=== PATIENT | male | born 1960 | race Caucasian/White ===

== ENCOUNTER 2023-08-06 03:43 | Emergency (ER) | payer OTHER, SELFPAY ==
[2023-08-06 03:44] VITALS: BMI 23.9
[2023-08-06 03:47] VITALS: BP 172/108
[2023-08-06 04:00] VITALS: BP 152/100
[2023-08-06 04:06] LABS: % Basophils 0.8 % (0-2); % Eosinophils 1.8 % (0-6); % Immature Granulocytes 0.2 % (0-0.5); % Lymphocytes 45.3 % (20.5-51.1); % Monocytes 7.7 % (1.7-9.3); % Neutrophils 44.2 % (42.2-75.2); Absolute Basophils 0.1 10^3/uL (0-0.2); Absolute Eosinophils 0.2 10^3/uL (0-0.7); Absolute Lymphocytes 4.5 10^3/uL (1.2-3.4); Absolute Monocytes 0.8 10^3/uL (0.1-0.6); Absolute Neutrophils 4.4 10^3/uL (1.4-6.5); Hematocrit 42.4 % (39.0-52.0); Mean Corp Hgb Conc. 35.4 g/dL (33.0-37.0); Mean Corpuscular Hgb 31.6 pg (27.0-31.0); Mean Corpuscular Volume 89.3 fL (80.0-94.0); Mean Platelet Volume 9.1 fL (7.4-10.4); Nucleated Red Blood Cells % 0 % (-); Platelet Count 230 10^3/uL (130-400); Red Blood Cell Count 4.75 10^6/uL (4.70-6.10); White Blood Cell Count 9.9 10^3/uL (4.8-10.8)
--- NOTE | 2023-08-06 04:07 | ED.GENMED ---
History of Present Illness
<MICHELLE Pena - Last Filed: 08/12/23 03:39>
General
Chief Complaint: Heart Rate Problem
Source: patient and family
Time Seen by Provider: 08/06/23 03:56
Travel History
Have you had any contact with someone who has COVID-19?: No
Do you have any symptoms of coronavirus? Fever > 100 degrees, chills, cough, shortness of breath, sore throat, loss of taste or smell, muscle aches, or headache?: No
History of Present Illness
History of Present Illness:
Pt is a pleasant 63 year old male presenting for an exacerbation of atrial fibrillation. Pt reports he woke up this morning in a cold sweat and his heart rate was around 120. Pt reports taking a 325 mg aspirin tablet at 3:10 am as he is not on blood
thinners. He reports palpitations, mild headache, and dizziness. He denies chest pain, SOB, nausea, vomiting, vision changes. He denies any falls. He reports he has been having repeated episodes of afib since July 04. This is his 6th episode
since July 04. He notes that on July 29 his heart rate fell below 30 during an episode. He notes he is not a candidate for beta blockers as he has a low resting heart rate around 45. He has a past history of successful cardioversion in 2020.
Pt is followed by Dr. Hairston and has an appointment scheduled for September 05 but his office advised him to go to the ER if he had another episode prior to his visit. Pt is active, stating he cycles or runs every other day. Pt denies tobacco use and
reports occasional alcohol consumption.
Past History
<MICHELLE Pena - Last Filed: 08/12/23 03:39>
Past History
ED Past Medical History: Arrthythmia and Hypothyroidism
ED Past Surgical History: None
Social History
Tobacco: Non-smoker
Alcohol: Occasional
Drug: None
Personal:
Living: with family
Employment: Employed
Family History
Family History: Other
Review of Systems
<MIHCELLE Pena - Last Filed: 08/12/23 03:39>
Review of Systems
All Other Systems: Not applicable
Constitutional: Reports no symptoms
EENT: Reports no symptoms
Respiratory: Reports no symptoms
Cardiac: Reports palpitations
ABD/GI: Reports no symptoms
: Reports no symptoms
Musculoskeletal: Reports no symptoms
Skin: Reports no symptoms
Neurological: Reports headache
Endocrine: Reports no symptoms
Hematologic/Lymphatic: Reports no symptoms
Psychiatric: Reports no symptoms
Phy Exam
<MICHELLE Pena - Last Filed: 08/12/23 03:39>
General Physical Exam
General Presentation: well appearing
General age: appears stated age
General Skin: warm and dry
General Habitus: normal
General Mental: alert
General Hydration: appears well hydrated
ENT Exam
ENT Exam: EOMI
Eye Exam
Eye Exam: PERRL, EOMI and conjunctiva normal
Cardiovascular Exam
Cardiovascular Exam: no edema and irregularly irregular
Pulmonary Exam
Pulmonary Exam: lungs clear
Mental
Mental Status: oriented to person, oriented to place and oriented to time
Musculoskeletal Exam
Musculoskeletal Exam: no edema
Skin Exam
Skin Exam: normal color and warm/dry
Psychiatric Exam
Psychiatric Exam: normal mood/affect
Course
<MICHELLE Pena - Last Filed: 08/12/23 03:39>
Orders/Labs/Results
Orders:
Orders
08/06/23 03:47
Electrocardiogram (*1) Urgent
Reason for Study: Chest Pain
Cardiac Monitoring- Treatment ONCE
EKG- Treatment ONCE
IV Insert/Care/Rem.- Treatment PRN
O2 Therapy [RESP] Urgent
Titrate/Wean O2 to maintain O2 sat greater than (%): 90
Special Instructions: Maintain sats >/=90%
Pulse Ox/spot Check [RESP] Urgent
Quantity: 1
Special Instructions: ON ROOM AIR
08/06/23 03:57
Complete Blood Count/With Diff Urgent
Comprehensive Metabolic Panel Urgent
Troponin I Urgent
08/06/23 06:11
Rivaroxaban [Xarelto] 20 mg PO NOW STA
Abnormal Lab Results
08/06/23
03:57
MCH 31.6 H pg
(27.0-31.0)
Absolute Lymphs (auto) 4.5 H 10^3/uL
(1.2-3.4)
Absolute Monos (auto) 0.8 H 10^3/uL
(0.1-0.6)
Glucose 104 H mg/dl
(70-99)
08/06/23 03:57
08/06/23 03:57
Vital Signs
Initial and Last Documented VS:
Initial Vital Signs
Temp Pulse Resp BP Pulse Ox
97.9 F 107 19 172/108 99
08/06/23 03:47 08/06/23 03:47 08/06/23 03:47 08/06/23 03:47 08/06/23 03:47
Last Documented Vital Signs
Temp Pulse Resp BP Pulse Ox
97.9 F 69 16 121/81 97
08/06/23 03:47 08/06/23 06:15 08/06/23 05:30 08/06/23 06:00 08/06/23 06:15
<Cameron Adams, - Last Filed: 08/06/23 06:11>
Orders/Labs/Results
Orders:
Orders
08/06/23 03:47
Electrocardiogram (*1) Urgent
Reason for Study: Chest Pain
Cardiac Monitoring- Treatment ONCE
EKG- Treatment ONCE
IV Insert/Care/Rem.- Treatment PRN
O2 Therapy [RESP] Urgent
Titrate/Wean O2 to maintain O2 sat greater than (%): 90
Special Instructions: Maintain sats >/=90%
Pulse Ox/spot Check [RESP] Urgent
Quantity: 1
Special Instructions: ON ROOM AIR
08/06/23 03:57
Complete Blood Count/With Diff Urgent
Comprehensive Metabolic Panel Urgent
Troponin I Urgent
08/06/23 06:11
Rivaroxaban [Xarelto] 20 mg PO NOW STA
Abnormal Lab Results
08/06/23
03:57
MCH 31.6 H pg
(27.0-31.0)
Absolute Lymphs (auto) 4.5 H 10^3/uL
(1.2-3.4)
Absolute Monos (auto) 0.8 H 10^3/uL
(0.1-0.6)
Glucose 104 H mg/dl
(70-99)
08/06/23 03:57
08/06/23 03:57
Vital Signs
Initial and Last Documented VS:
Initial Vital Signs
Temp Pulse Resp BP Pulse Ox
97.9 F 107 19 172/108 99
08/06/23 03:47 08/06/23 03:47 08/06/23 03:47 08/06/23 03:47 08/06/23 03:47
Last Documented Vital Signs
Temp Pulse Resp BP Pulse Ox
97.9 F 69 16 121/81 97
08/06/23 03:47 08/06/23 06:15 08/06/23 05:30 08/06/23 06:00 08/06/23 06:15
Bentleylt;MICHELLE Pena - Last Filed: 08/12/23 03:39>
MDM/Problems Addressed
Differential Diagnosis Includes:
Atrial fibrillation, PVCs
MDM/Problems Addressed:
Rapid heart rate
Chronic conditions affecting care: Arrhythmia
Acute Exacerbation and/or Progression of Chronic Illness: Arrhythmia
<MICHELLE Pena - Last Filed: 08/12/23 03:39>
*Critical Care Note
Total Time (30-74mins, 75-104mins- exclusive of procedures): Not Applicable
<Cameron Adams DO - Last Filed: 08/06/23 06:11>
Update Note
Update Note:
Spoke with Dr. Fuchs, manager of environmental services. At this point he recommends Xarelto and follow-up in the office. Discussed this plan with patient who is in agreement.
ED Attending Note
<MICHELLE Pena - Last Filed: 08/12/23 03:39>
-
Portions of this chart may have been created with voice recognition software.� Occasional wrong word or��sound alike� substitutions may have occurred due to the inherent limitations of voice recognition software.
<Cameron Adams DO - Last Filed: 08/06/23 06:11>
ED Attending Note
Patient seen and examined by attending physician: Yes
I performed the substantive portion of visit, reviewed & personally made and approve the management plan that is documented in note by myself or DINESH.: Yes
Discharge Plan
Departure
Patient Disposition: Home (Routine Discharge)
Date of Disposition: 08/06/23
Time of Disposition: 06:10
Patient with high blood pressure during this ER visit?: Yes
Condition: Good
Discharge Problem:
Atrial fibrillation
Instructions: Atrial Fibrillation (DC), Palpitations (DC), BLOOD PRESSURE
Prescriptions:
New
Xarelto 20 mg tablet
20 mg PO QPM Qty: 15 0RF
No Action
levothyroxine 75 MCG tablet
75 mcg PO DAILY
cholecalciferol (vitamin D3) 1,000 UNITS tablet
1,000 units PO DAILY
Referrals:
Milla Javed DO [Family Provider] -
Francisco Hairston MD [Active] - Next open appointment
Activity Restrictions/Additional Instructions:
It was a pleasure meeting you and taking part in your care. We hope for your continued healing and wellness.
Please read discharge instructions in their entirety. However, they are for general education and may not describe your exact diagnosis at discharge. Information on your ER visit and medical conditions were discussed with you along with appropriate
follow up information...
If indicated, please take your medications as instructed and indicated on discharge paperwork.
Please schedule a follow up appointment as directed. Call to schedule an appointment
Please return to the emergency department with ANY change in, persisting, or worsening of symptoms. If any of your symptoms do not improve, or persist, or become more severe within 6-12 hours, please return to the emergency department for further
care.
Please return to the emergency department if you develop a headache, neck pain/stiffness, fever greater than 100.4F, chest pain, shortness of breath, persistent nausea, vomiting, slurred speech, difficulty walking, numbness/tingling, weakness, signs
of infection or any other symptoms that are worrisome to you.
If you have any questions or concerns please do not hesitate to call the Hospital at or E-mail me directly at [email or web address]
Interventions
Interventions:
*Risk Screen - Suicide Last Done: 08/06/23 03:47
*General Assessment Last Done: 08/06/23 03:47
*Neglect/Abuse Screening Last Done: 08/06/23 03:47
*ED COVID-19 Vaccine History Last Done: 08/06/23 03:47
*Nursing Disposition Last Done: 08/06/23 06:33
ED- Cardiac Assessment Last Done: 08/06/23 04:01
ED- Pulmonary Assessment Last Done: 08/06/23 04:01
Discharge Date and Time
Discharge Date/Time: 08/06/23 06:34
[2023-08-06 04:23] LABS: ALT (SGPT) 29 U/L (0-50); AST (SGOT) 35 U/L (17-59); Albumin 4.8 g/dl (3.5-5.0); Alkaline Phosphatase 38 U/L (38-126); Blood Urea Nitrogen 18 mg/dl (9-20); Calcium 9.5 mg/dl (8.4-10.2); Carbon Dioxide 28 mmol/L (22-30); Chloride 100 mmol/L (98-107); Estimated Creatinine Clearance 88 ml/min; Glucose 104 mg/dl (70-99); Potassium 3.8 mmol/L (3.5-5.1); Sodium 139 mmol/L (135-145); Total Bilirubin 1.2 mg/dl (0.2-1.3); Total Protein 7.5 g/dl (6.3-8.2); eGFR > 60.00
[2023-08-06 04:30] LABS: Troponin I < 0.012 ng/ml
[2023-08-06 05:00] VITALS: BP 134/97
[2023-08-06 06:00] VITALS: BP 121/81
[2023-08-06] MEDS: XARELTO 20 MG PO (06:29)
== END 2023-08-06 06:34 | disposition home or self-care (01) ==
LOC: EMR 03:43
PROVIDERS: EMERGENCY PHYSICIAN Student in an Organized Health Care Education/Training Program; FAMILY PHYSICIAN Internal Medicine
DX: I48.91 Unspecified atrial fibrillation (principal); R03.0 Elevated blood-pressure reading, without diagnosis of hypertension
CPT/HCPCS: 99284; 80053; 84484; 85025; 93005

== ENCOUNTER → 2023-11-10 06:34 | Day surgery (SDC) | payer OTHER, SELFPAY | LOC: GI 06:34 | PROVIDERS: ATTENDING PHYSICIAN Internal Medicine | DX: K22.89 Other specified disease of esophagus (principal); K44.9 Diaphragmatic hernia without obstruction or gangrene; K31.7 Polyp of stomach and duodenum; K31.89 Other diseases of stomach and duodenum; R68.81 Early satiety; R14.2 Eructation; Z79.01 Long term (current) use of anticoagulants; K29.70 Gastritis, unspecified, without bleeding | CPT/HCPCS: 43239; 88305; 88342 ==

== ENCOUNTER → 2023-12-16 06:27 | Day surgery (SDC) | payer OTHER, SELFPAY | LOC: GI 06:27 | PROVIDERS: ATTENDING PHYSICIAN Internal Medicine | DX: K92.1 Melena (principal); K64.8 Other hemorrhoids; D12.0 Benign neoplasm of cecum; K22.89 Other specified disease of esophagus; K44.9 Diaphragmatic hernia without obstruction or gangrene | CPT/HCPCS: 45385; 45380; 43235; 88305 ==

== ENCOUNTER → 2024-02-01 08:12 | Day surgery (SDC) | payer OTHER, SELFPAY ==
[2024-01-25 13:03] VITALS: BMI 23.0
[2024-01-25 13:14] LABS: % Basophils 1.2 % (0-2); % Eosinophils 1.8 % (0-6); % Immature Granulocytes 0.1 % (0-0.5); % Lymphocytes 45.5 % (20.5-51.1); % Monocytes 6.8 % (1.7-9.3); % Neutrophils 44.6 % (42.2-75.2); Absolute Basophils 0.1 10^3/uL (0-0.2); Absolute Eosinophils 0.2 10^3/uL (0-0.7); Absolute Monocytes 0.6 10^3/uL (0.1-0.6); Absolute Neutrophils 3.9 10^3/uL (1.4-6.5); Hematocrit 39.4 % (39.0-52.0); Hemoglobin 13.8 g/dL (13.0-18.0); Mean Corpuscular Volume 88.5 fL (80.0-94.0); Mean Platelet Volume 9.4 fL (7.4-10.4); Nucleated Red Blood Cells % 0 % (-); Platelet Count 249 10^3/uL (130-400); Red Blood Cell Count 4.45 10^6/uL (4.70-6.10); Red Cell Dist. Width 12.1 % (11.5-14.5); White Blood Cell Count 8.7 10^3/uL (4.8-10.8)
[2024-01-25 13:17] LABS: INR 1.26; PT 15.8 Sec (11.4-14.6)
[2024-01-25 13:24] LABS: ALT (SGPT) 41 U/L (0-50); AST (SGOT) 31 U/L (17-59); Albumin 4.8 g/dl (3.5-5.0); Alkaline Phosphatase 41 U/L (38-126); Blood Urea Nitrogen 17 mg/dl (9-20); Calcium 9.9 mg/dl (8.4-10.2); Carbon Dioxide 30 mmol/L (22-30); Chloride 101 mmol/L (98-107); Estimated Creatinine Clearance 79 ml/min; Glucose 97 mg/dl (70-99); Magnesium 2.1 mg/dl (1.6-2.3); Potassium 4.6 mmol/L (3.5-5.1); Sodium 140 mmol/L (135-145); Total Bilirubin 0.7 mg/dl (0.2-1.3); Total Protein 7.3 g/dl (6.3-8.2); eGFR > 60.00
--- NOTE | 2024-01-27 14:45 | W.PN.UPDATE ---
Update Note
Progress Note Update
Small pleural-based pulmonary nodules, of doubtful clinical significance. If the patient is considered high risk, an optional follow-up noncontrast CT chest can be obtained in 12 months. The [facility] Pulmonary Nodule Advisory Board will be
notified.
--faxed to PCP-LM patient
--- NOTE | 2024-01-31 10:05 | OID.L.PAT ---
Pulmonary Nodule Pat Letter
- -
01/31/24
RINKU RUVALCABA
[address] [facility]
[place], [place]
Deaalma DOBBS,
A pulmonary nodule was seen on an imaging study done by [facility]. This was reviewed by the [facility] Pulmonary Nodule Advisory Board and the following recommendation was made:
Recommendation: Follow up CT Chest in one year
If you have any questions, please do not hesitate to contact your primary care physician. If you are in need of a Physician, you can go to [email or web address] and click on 'Find a Provider'. Type 'Family Medicine' in the search.
Oncology Nurse Navigator
[facility]
[phone]
--- NOTE | 2024-01-31 10:05 | OID.L.REC ---
Pulmonary Nodule Follow Up
- Recommendation
01/31/24
Pulmonary Nodule Review Recommendations
Your patient, RINKU RUVALCABA, had a pulmonary nodule seen on an imaging study done on 01/25/24 in the [facility] Radiology Department.
This was reviewed by the [facility] Pulmonary Nodule Advisory Board and the following recommendation was made:
Recommendation: Follow up CT Chest in one year
If you have any questions please do not hesitate to contact us.
Sincerely,
Oncology Nurse Navigator
[facility]
[phone]
[2024-02-01] VITALS (8 sets, daily range): BP systolic 121–161; BP diastolic 72–100; BMI 22.4
[2024-02-01 11:18] LABS: ACT-LR - POC 353 Seconds (116-155)
[2024-02-01 11:33] LABS: ACT-LR - POC 343 Seconds (116-155)
--- NOTE | 2024-02-01 11:56 | ITS.CL.ABL ---
Oil Separator - Ablation
Ablation
Procedure Report:
ELECTROPHYSIOLOGY ABLATION STUDY
�
DATE:: 02/01/2024�����������������������������REFERRING: Dr. Francisco Hairston
�
INDICATION: Paroxysmal supraventricular tachycardia in the form of atrial fibrillation.��
�
HISTORY: See H and P.��
�
ANTIARRHYTHMIC DRUG: No class 1 or 3 AAD
�
PRE-PROCEDURE SONJA: No atrial thrombus
�
PRESENTING RHYTHM: Sinus bradycardia
�
'TIME-OUT':��called and confirmed.
�
SEDATION/ANESTHESIA:��provided via the anesthesia department using general anesthesia (LMA).
�
INTRAVENOUS/ARTERIAL ACCESS:
Right femoral venous - 10 Fr, 8Fr
Left femoral venous - 8 Fr
Ultrasound guidance for bilateral femoral vein access was utilized by me to obtain access with demonstration of normal anatomy
CHADS-VASC Score:
�
HAS-Bled Score
�
PROCEDURE:
1.��A decapolar CS catheter was placed within the CS for mapping and pacing.��This was also used as the reference catheter for the 3-D map.
�
2. The intracardiac ultrasound catheter was positioned in the RA to identify the FO for targeting of transseptal puncture, assist��in identification of the pulmonary vein ostia, monitoring pre and post ablation pulmonary vein flow velocities,
monitoring for 'bubble' formation during RF application as a sign of thermal injury,��and to monitor for pericardial effusion during mapping and ablation procedure.���Left atrial size, LV ejection fraction, and pulmonary vein flows were monitored
pre and post ablation procedure. The other valves were inspected and found to be free of significant regurgitation or stenosis.
�
3.��Half of the calculated heparin bolus was administered prior to the first transeptal puncture.��Transseptal puncture was performed to diagnose RA and LA pressure so that safety of LA mapping and ablation could be further assessed, and to access
the left atrium and pulmonary veins for mapping and ablation.��This entailed advancing an 10fr Agilis sheath with dilator into the superior vena cava and withdrawing both (monitoring intracardiac ultrasound, fluoroscopy and tip pressure) with the
tip oriented toward the atrial septum.��The fossa ovalis was engaged (indicated by sudden displacement of the sheath tip as well as tenting of the fossa seen on intracardiac ultrasound).��Left atrial access required a pass with the [place]
needle extended.��Left atrial catheter position was confirmed by pressure monitoring (RA mean pressure 8 mm Hg and LA mean pressure 14 mm Hg), LA saturation ( 99 %),��as well as fluoroscopy.��The sheath was advanced over the dilator and positioned
in the left atrium.��The remainder of the calculated heparin bolus was administered and heparin was
infused to maintain ACT at 300 -350 seconds throughout the case.
�
4.��RA pacing was performed via the proximal decapolar poles and LA pacing was performed via the distal decapolar poles.
�
5. A quadrapolar catheter was first positioned at the His position for His Bundle recording which was tagged via the 3-D Navex sytem, and then passed to the RVA for RV pacing and recording.
�
6. The multipolar catheter and PFA catheter placed in each of the LIPV, LSPV, RSPV and the RIPV.��
�
7.��Next, a 3-D map was created using Navex.���A 3-D reconstructed CT image was compared to the 3-D Navex map to assist in anatomic interpretation, mapping and ablation.��The CT image and the NavX image were fused.
�
8. Total of 85 lesions were given to the posterior wall and the pulmonary veins leading to entrance and exit block achieved in all 4 pulmonary veins and the posterior wall which was isolated electrically. No other tachyarrhythmias or atrial
fibrillation was inducible after lesions.
�
9. Normal sinus node and AV jacob function noted.
�
�
TOTAL FLOURO TIME: 12.6 minutes 120 mGy
�
TOTAL RF DURATION: 0 minutes
�
REVERSAL OF HEPARIN: 35 mg of protamine, slow IV administration
�
COMPLICATIONS:
None
Intracardiac US shows no pericardial effusion post ablation.
�
SUMMARY:��
Complex left atrial mapping and ablation.
Isolation of all 4 pulmonary veins and the posterior wall.
�
RECOMMENDATIONS:
1. Admit to monitored bed.��
2. Resume anticoagulation
3.�OOB 2 hrs
4.��Caonsider same day discharge
�
Copy to: Dr. Francisco Hairston
�
[2024-02-01] MEDS: ANESTHETIC LOZENGE 1 LOZENGE PO (13:58)
--- NOTE | 2024-02-01 14:13 | W.PN.UPDATE ---
Update Note
Progress Note Update
63 yo WM s/p PVI (Same day). He denies cp, sob, dalia diet, EKG SR, b/l groins c/d/i VASCADE closure. He will continue OAC Xarelto tonight at home. Activity restrictions reviewed. He will f/u Dr. Hairston in 2 mo. He is for d/c home after 3pm if groins
stable and able to void.
SUMMARY:��
Complex left atrial mapping and ablation.
Isolation of all 4 pulmonary veins and the posterior wall.
�
RECOMMENDATIONS:
1. Admit to monitored bed.��
2. Resume anticoagulation
3.�OOB 2 hrs
4.��Caonsider same day discharge
�
Copy to: Dr. Francisco Hairston
== END | disposition home or self-care (01) ==
LOC: CATH 08:12
PROVIDERS: ATTENDING PHYSICIAN Internal Medicine Cardiovascular Disease; FAMILY PHYSICIAN Internal Medicine; OTHER PHYSICIAN Internal Medicine Cardiovascular Disease
DX: I48.0 Paroxysmal atrial fibrillation (principal); I47.19 Other supraventricular tachycardia; R07.89 Other chest pain; R00.2 Palpitations; R53.83 Other fatigue; R00.1 Bradycardia, unspecified; Z79.890 Hormone replacement therapy; E06.3 Autoimmune thyroiditis; K64.8 Other hemorrhoids; K21.9 Gastro-esophageal reflux disease without esophagitis; R91.1 Solitary pulmonary nodule; Z98.890 Other specified postprocedural states; Z79.01 Long term (current) use of anticoagulants
CPT/HCPCS: C1732; C1894; C1730; C1733; C1769; C1892; C1759; 36415; 75572; 80053; 83735; 85025; 85347; 85610; 86850; 86900; 86901; 93005; 93656; C1760; Q9967

== ENCOUNTER → 2025-02-21 07:32 | Outpatient (REF) | payer OTHER, SELFPAY | LOC: HWRAD 07:32 | PROVIDERS: ATTENDING PHYSICIAN Internal Medicine Cardiovascular Disease; FAMILY PHYSICIAN Internal Medicine | DX: R91.1 Solitary pulmonary nodule (principal) | CPT/HCPCS: 71250 ==